=== PATIENT | female | born 1975 | race Caucasian/White ===

== ENCOUNTER → 2016-09-14 | Outpatient (CLI) | payer OTHER ==
[~2016-09-14] VITALS: Ht 157.5 cm; Wt 53.0 kg
[~2016-09-14] MED LIST: ALPRAZOLAM PO; ALPRAZOLAM0.5 MG PO; AUGMENTIN875 MG PO; BENTYL10 MG PO; BENTYL20 MG PO; BIOTIN 5000MCG PO; BIOTIN PO; BIOTIN2500 MCG PO; CALCIUM 500 MG1 EACH PO; CARAFATE1 GM PO; CARAFATE100 MG/ML PO; CEFDINIR300 MG PO; CLONAZEPAM0.5 MG PO; COUMADIN PO; COUMADIN10 MG PO; CYANOCOBALAM1000 MCG PO; CYCLOBENZAPRINE5 MG PO; Coumadin,Jantoven PO; DAILY VITAMIN1 EAC8 PO; DILAUDID2 MG PO; DURAGESIC50 MCG TD; ESTRADIOL1 MG PO; Flexeril PO; HYDROMORPHONE HC2 MG PO; INDOCIN25 MG PO; KEFLEX500 MG PO; LEVOTHYROXINE88 MCG PO; Lovenox SC; MEGA BIOTIN10000 MCG PO; NEXIUM40 MG PO; NOHOMEMEDS; NUCYNTA50 MG PO; OMEPRAZOLE10 M1 PO; ONE-A-DAY ESSE1 EAC1 PO; PAIN & FEVER325 MG PO; PROMETHAZINE HC25 M1 PO; PROTONIX40 MG PO; Phenergan PO; RANITIDINE HCL150 MG PO; REGLAN10 MG PO; SOMA; SOMA350 MG PO; SUPER MULTIVIT1 EACH PO; SYNTHROID88 MCG PO; Tirosint PO; Ultram PO; VALIUM5 MG PO; VITAMIN B12 100MCG PO; VITAMIN B12 PO; VITAMIN B122500 MCG PO; VITAMIN D1000 UNIT PO; VITAMIN D34000 UNIT PO; VITAMIN D5000 UNI1 PO; VITAMIN E100 UNIT PO; ZANTAC150 MG PO; ZOFRAN ODT4 MG PO; ZOFRAN4 MG PO; celeBREX PO; klonopin; ultram
[2016-09-14 10:37] VITALS: BP 104/60
== END | disposition home or self-care (01) ==
LOC: IVINF 07:00
DX: M81.0 Age-related osteoporosis without current pathological fracture (principal); Z88.5 Allergy status to narcotic agent; Z88.1 Allergy status to other antibiotic agents; Z88.8 Allergy status to other drugs, medicaments and biological substances
CPT/HCPCS: 96365; J3489

== ENCOUNTER 2016-09-17 12:23 | Emergency (ER) | payer OTHER ==
[~2016-09-17] VITALS: Ht 152.4 cm; Wt 54.4 kg
[2016-09-17 16:54] LABS: HEMATOCRIT 38.1 % (36.0-46.0); MCH 32.9 PG (29.0-34.0); MCHC 32.8 G/DL (30.0-36.0); MCV 100.3 FL (83-99); MEAN PLAT.VOLUME 9.8 uM^3 (9.5-12.4); PLATELET COUNT 259 K/uL (156-360); RBC DIS.WIDTH-CV 13.5 % (11.8-14.6); RBC DIS.WIDTH-SD 50.3 % (39-53); WHITE BLOOD COUNT 7.6 K/uL (4.1-10.2)
[2016-09-17 17:04] LABS: CHLORIDE 104 mEq/L (99-109); POTASSIUM 4.3 mEq/L (3.7-5.4); SODIUM 138 mEq/L (136-147)
[2016-09-17 17:06] LABS: GLUCOSE 87 mg/dL (70-99)
[2016-09-17 17:07] LABS: ANION GAP 7 MEQ/L (2-14)
[2016-09-17 17:10] LABS: GFR ESTIMATE (CALCULATED) > 59 mL/min/
[2016-09-17 17:11] LABS: UREA NITROGEN (BUN) 5 mg/dL (9-23)
[2016-09-17 19:20] VITALS: BP 101/58
== END 2016-09-17 19:21 | disposition home or self-care (01) ==
LOC: EME 12:23
PROVIDERS: Physician Assistant Medical
DX: R60.0 Localized edema (principal); R11.0 Nausea; R51 Headache; T50.995A Adverse effect of other drugs, medicaments and biological substances, initial encounter; M81.8 Other osteoporosis without current pathological fracture; Z86.718 Personal history of other venous thrombosis and embolism; Z86.711 Personal history of pulmonary embolism; Z87.891 Personal history of nicotine dependence
CPT/HCPCS: 71020; 80048; 85027; 93971; 99281; 99283

== ENCOUNTER 2016-10-03 14:06 | Observation (INO) | payer OTHER ==
[~2016-10-03] VITALS: Ht 152.4 cm; Wt 52.8 kg
[2016-10-03] MEDS ORDERED: CARAFATE100 MG/ML PO (15:11)
[2016-10-03 15:30] LABS: ADD MIUA? YES; BILIRUBIN NEGATIVE; BLOOD NEGATIVE; COLOR YELLOW ((YELLOW)); GLUCOSE (STRIP) NEGATIVE; KETONES 5; LEUKOCYTES NEGATIVE; NITRITE NEGATIVE; PROTEIN (STRIP) NEGATIVE; SPECIFIC GRAVITY 1.016 (1.000-1.030)
[2016-10-03 15:37] LABS: BACTERIA RARE /HPF; EPITHELIAL CELLS RARE /HPF; MUCUS TRACE /LPF; RED BLOOD CELLS 0-5 /HPF (0-5); UCUL ADDED? NO; WHITE BLOOD CELLS 0-5 /HPF (0-5)
[2016-10-03 16:00] LABS: HEMATOCRIT 39.6 % (36.0-46.0); MCH 32.2 PG (29.0-34.0); MCHC 32.8 G/DL (30.0-36.0); MEAN PLAT.VOLUME 9.4 uM^3 (9.5-12.4); PLATELET COUNT 299 K/uL (156-360); RBC DIS.WIDTH-CV 13.1 % (11.8-14.6); RBC DIS.WIDTH-SD 47.3 % (39-53); RED BLOOD COUNT 4.04 M/uL (3.80-5.20); WHITE BLOOD COUNT 8.5 K/uL (4.1-10.2)
[2016-10-03 16:12] LABS: CHLORIDE 103 mEq/L (99-109); SODIUM 137 mEq/L (136-147)
[2016-10-03 16:14] LABS: GLUCOSE 98 mg/dL (70-99)
[2016-10-03 16:15] LABS: ANION GAP 7 MEQ/L (2-14)
[2016-10-03 16:16] LABS: TOTAL BILIRUBIN 0.3 mg/dL (0.0-1.0)
[2016-10-03 16:17] LABS: ALKALINE PHOSPHATASE 460 IU/L (3-129)
[2016-10-03 16:18] LABS: GFR ESTIMATE (CALCULATED) > 59 mL/min/
[2016-10-03 16:19] LABS: UREA NITROGEN (BUN) 7 mg/dL (9-23)
[2016-10-03 16:27] LABS: QUANTITATIVE HCG < 4.0 MIU/ML
[2016-10-03] MEDS ORDERED: CARISOPRODOL350 MG PO (16:39)
[2016-10-03] MEDS ORDERED: NUCYNTA50 MG PO (16:40)
[2016-10-03] MEDS ORDERED: ESOMEPRAZOLE MA40 MG PO (16:40)
[2016-10-03 16:54] LABS: AMYLASE 47 IU/L (1-118)
[2016-10-03 17:34] LABS: PROTHROMBIN TIME 10.4 (9.2-11.2); PTT 26.4 (25-32)
[2016-10-03] MEDS ORDERED: SYNTHROID88 MCG PO (22:33)
[2016-10-04 00:13] VITALS: BP 104/60
[2016-10-04 05:21] LABS: HEMATOCRIT 38.1 % (36.0-46.0); MCH 33.3 PG (29.0-34.0); MCHC 33.6 G/DL (30.0-36.0); MCV 99.2 FL (83-99); MEAN PLAT.VOLUME 9.7 uM^3 (9.5-12.4); PLATELET COUNT 262 K/uL (156-360); RBC DIS.WIDTH-CV 13.4 % (11.8-14.6); RBC DIS.WIDTH-SD 49.1 % (39-53); RED BLOOD COUNT 3.84 M/uL (3.80-5.20); WHITE BLOOD COUNT 4.9 K/uL (4.1-10.2)
[2016-10-04 05:57] LABS: ALKALINE PHOSPHATASE 454 IU/L (3-129); ANION GAP 4 MEQ/L (2-14); CHLORIDE 108 MEQ/L (99-109); GFR ESTIMATE (CALCULATED) > 59 mL/min/; GLUCOSE 84 mg/dL (70-99); POTASSIUM 4.2 MEQ/L (3.7-5.4); SAMPLE HEMOLYSIS CHECK 0; SAMPLE ICTERIC CHECK 0; SAMPLE LIPEMIA CHECK 0; SODIUM 141 MEQ/L (136-147); TOTAL BILIRUBIN 0.5 MG/DL (0.0-1.0); UREA NITROGEN (BUN) 5 mg/dL (9-23)
[2016-10-04 06:54] VITALS: BP 89/52
[2016-10-04 09:37] LABS: GLOBULINS 1.8 G/DL (2.3-3.5)
[2016-10-04 11:10] VITALS: BP 108/67
[2016-10-04 11:30] VITALS: BP 121/74
[2016-10-04 11:46] LABS: AHBS INDEX 0; HEPATITIS B SURFACE ANTIBODY Nonreactive
[2016-10-04 11:47] LABS: ANTI-HEPATITIS A VIRUS (IGM) Nonreactive; HAV INDEX 0.18
[2016-10-04 11:49] LABS: ANTI-HEPATITIS B CORE (IGM) Nonreactive; ANTI-HEPATITIS B CORE (TOTAL) Nonreactive; HBC IgM INDEX 0.12; HBCT INDEX 0.08
[2016-10-04 11:51] LABS: HBSG INDEX 0.21; HPCA INDEX 0.12
[2016-10-04 11:52] LABS: ANTI-HEPATITIS A VIRUS (IGM) Nonreactive; HAV INDEX 0.13
[2016-10-04 11:53] LABS: ANTI-HEPATITIS B CORE (IGM) Nonreactive; HBC IgM INDEX 0.12
[2016-10-04 15:57] VITALS: BP 112/71
[2016-10-04 18:41] VITALS: BP 102/62
[2016-10-05 04:11] VITALS: BP 92/56
[2016-10-05 06:39] VITALS: BP 101/56
[2016-10-05 09:12] LABS: EOSINOPHIL (%) 1.8 % (0-5); EOSINOPHIL COUNT 0.1 K/uL (0-0.3); IMMATURE GRANULOCYTE (%) 0.4 % (0.0-0.7); INSTRUMENT ABS NEUTROPHIL CT 2.4 K/uL; LYMPHOCYTE COUNT 1.6 K/uL (1.0-2.8); MCHC 32.4 G/DL (30.0-36.0); MCV 98.8 FL (83-99); MEAN PLAT.VOLUME 9.8 uM^3 (9.5-12.4); MONOCYTE (%) 8.9 % (3-12); MONOCYTE COUNT 0.4 K/uL (0-0.8); NEUTROPHIL (%) 52.6 % (45-76); NEUTROPHIL COUNT 2.4 K/uL (1.8-6.4); PLATELET COUNT 277 K/uL (156-360); RBC DIS.WIDTH-CV 13.2 % (11.8-14.6); RBC DIS.WIDTH-SD 47.8 % (39-53); RED BLOOD COUNT 4.15 M/uL (3.80-5.20); WHITE BLOOD COUNT 4.5 K/uL (4.1-10.2)
[2016-10-05 09:37] LABS: ANION GAP 3 MEQ/L (2-14); CHLORIDE 110 MEQ/L (99-109); GFR ESTIMATE (CALCULATED) > 59 mL/min/; GLUCOSE 87 mg/dL (70-99); POTASSIUM 4.2 MEQ/L (3.7-5.4); SAMPLE HEMOLYSIS CHECK 0; SAMPLE ICTERIC CHECK 0; SAMPLE LIPEMIA CHECK 0; SODIUM 140 MEQ/L (136-147); UREA NITROGEN (BUN) 3 mg/dL (9-23)
[2016-10-05 10:13] LABS: ALKALINE PHOSPHATASE 414 IU/L (3-129); DIRECT BILIRUBIN 0.5 mg/dL (0.0-0.3); FERRITIN 51 NG/ML (10-291)
[2016-10-05 10:14] LABS: TOTAL BILIRUBIN 0.9 MG/DL (0.0-1.0)
[2016-10-05 19:10] VITALS: BP 122/72
[2016-10-05 23:57] VITALS: BP 97/56
[2016-10-06 03:32] VITALS: BP 113/57
[2016-10-06 07:31] LABS: ALKALINE PHOSPHATASE 366 IU/L (3-129); DIRECT BILIRUBIN 0.1 mg/dL (0.0-0.3)
[2016-10-06 07:33] LABS: TOTAL BILIRUBIN 0.3 MG/DL (0.0-1.0)
[2016-10-06 17:33] LABS: HCV RNA (IU/mL) <15 IU/mL (<15)
[2016-10-06 21:31] LABS: HCV RNA (IU/mL) <15 IU/mL (<15)
[2016-10-06 22:44] LABS: ANTI-SMOOTH MUSCLE (Actin)+ <20 U (<20)
[2016-10-06 22:56] LABS: MITOCHONDRIAL (M2) ANTIBODIES+ <=20.0 U (<=20.0)
[2016-10-07 10:11] LABS: HCV RNA (LOG IU/mL) <1.18 (<1.18)
[2016-10-07 10:12] LABS: HCV RNA (LOG IU/mL) <1.18 (<1.18)
[2016-10-08 12:25] LABS: ALBUMIN 3.54 G/DL (3.6-4.9); ALBUMIN PERCENT 66.7 %; ALPHA-1 GLOBULIN 0.17 G/DL (0.15-0.40); ALPHA-1 PERCENT 3.2 %; ALPHA-2 GLOBULIN 0.65 G/DL (0.45-0.85); ALPHA-2 PERCENT 12.3 %; GAMMA PERCENT 8.8 %; SERUM GEL NO. 83-5
== END 2016-10-06 13:01 | disposition home or self-care (01) ==
LOC: EME 14:06 → RME 14:06 → EDOF 23:02 → 5WEST 23:02 → EDOF 23:02 → 5WEST 23:46
PROVIDERS: Internal Medicine; Physician Assistant; Specialist; Student in an Organized Health Care Education/Training Program
PROC: 0DB68ZX Excision of Stomach, Via Natural or Artificial Opening Endoscopic, Diagnostic (ICD-10-PCS; principal; 2016-10-05)
DX: R10.84 Generalized abdominal pain (principal); K83.8 Other specified diseases of biliary tract; K25.9 Gastric ulcer, unspecified as acute or chronic, without hemorrhage or perforation; Z98.84 Bariatric surgery status; Z90.49 Acquired absence of other specified parts of digestive tract; R74.8 Abnormal levels of other serum enzymes; Z91.030 Bee allergy status; Z88.8 Allergy status to other drugs, medicaments and biological substances; R19.7 Diarrhea, unspecified; E03.9 Hypothyroidism, unspecified; Z86.718 Personal history of other venous thrombosis and embolism; F17.200 Nicotine dependence, unspecified, uncomplicated
CPT/HCPCS: 74020; 74177; 74181; 74250; 80048; 80053; 80074; 80076; 81003; 82150; 82390; 82728; 82787 90; 83516 90; 84165; 84466; 84702; 85025; 85027; 85610; 85730; 86038; 86256 90; 86704; 86705; 86706; 86708 90; 86709; 87493; 87522 90; 88305; 88342 TC; 99281; 99285; C9113; G0378; J1644; J2060; J2270; J2405; J2765; J3010; J7030

== ENCOUNTER → 2016-11-05 | Outpatient (CLI) | payer OTHER ==
[~2016-11-05] MED LIST changes: +CARISOPRODOL350 MG PO; +ESOMEPRAZOLE MA40 MG PO
== END | disposition home or self-care (01) ==
LOC: CDC 11:29
DX: Z01.810 Encounter for preprocedural cardiovascular examination (principal)
CPT/HCPCS: 93000

== ENCOUNTER → 2017-07-08 | Outpatient (CLI) | payer OTHER | END | disposition home or self-care (01) | LOC: CDC 08:28 | DX: Z01.818 Encounter for other preprocedural examination (principal) | CPT/HCPCS: 93000 ==

== ENCOUNTER → 2017-11-08 | Outpatient (CLI) | payer OTHER ==
[~2017-11-08] VITALS: Ht 157.5 cm; Wt 51.0 kg
[~2017-11-08] MED LIST changes: +REGLAN5 MG PO; +VITAMIN B-6250 MG PO
[2017-11-08 20:20] VITALS: BP 114/53
== END | disposition home or self-care (01) ==
LOC: IVINF 19:30
DX: M81.0 Age-related osteoporosis without current pathological fracture (principal); Z87.11 Personal history of peptic ulcer disease
CPT/HCPCS: 96365; J3489